=== PATIENT | female | born 1980 | race African-American/Black ===

== ENCOUNTER 2018-03-25 08:09 | Emergency (ER) | payer BC, OTHER ==
[~2018-03-25] VITALS: Ht 167.6 cm; Wt 102.0 kg
[~2018-03-25 08:09] MED LIST: ALBUTEROL S5 MG/1 ML IH; FISH OIL300 MG PO; FLAX OIL1000 MG PO; PREDNISONE20 MG PO; PREDNISONE50 MG PO; PROAIR HFA8.5 GM IH; VENTOLIN HFA18 GM IH
[2018-03-25 09:04] LABS: HEMATOCRIT 40.3 % (36.0-46.0); HEMOGLOBIN 13.2 G/DL (11.9-15.5); MCH 28.9 PG (29.0-34.0); MCHC 32.8 G/DL (30.0-36.0); MCV 88.2 FL (83-99); PLATELET COUNT 264 K/uL (156-360); RBC DIS.WIDTH-CV 13.1 % (11.8-14.6); RBC DIS.WIDTH-SD 42.5 % (39-53); RED BLOOD COUNT 4.57 M/uL (3.80-5.20); WHITE BLOOD COUNT 8.7 K/uL (4.1-10.2)
[2018-03-25 09:19] LABS: CHLORIDE 104 mEq/L (99-109); POTASSIUM 3.7 mEq/L (3.7-5.4); SODIUM 140 mEq/L (136-147)
[2018-03-25 09:21] LABS: GLUCOSE 109 mg/dL (70-99)
[2018-03-25 09:25] LABS: CREATININE 0.8 mg/dL (0.6-1.3); GFR ESTIMATE (CALCULATED) > 59 mL/min/; UREA NITROGEN (BUN) 10 mg/dL (9-23)
[2018-03-25 09:38] LABS: QUANTITATIVE HCG < 4.0 MIU/ML
[2018-03-25] MEDS ORDERED: PREDNISONE20 MG PO (13:36)
[2018-03-25 13:45] VITALS: BP 136/69
== END 2018-03-25 13:45 | disposition home or self-care (01) ==
LOC: EME 08:09
PROVIDERS: Emergency Medicine
DX: J45.901 Unspecified asthma with (acute) exacerbation (principal); F17.200 Nicotine dependence, unspecified, uncomplicated
CPT/HCPCS: 71045; 80048; 84702; 85027; 94640; 94644; 94645; 99281; 99285; J2930